=== PATIENT | male | born 1985 | race Caucasian/White ===

== ENCOUNTER → 2017-02-22 | Outpatient (CLI) | payer OTHER ==
[2017-02-22 08:02] LABS: ALT 49 U/L (21-72); AST 29 U/L (17-59); Alkaline Phosphatase 66 U/L (38-126); Anion Gap 8 mmol/L; Blood Urea Nitrogen 13 mg/dL (9-20); Calcium 9.2 mg/dL (8.4-10.2); Carbon Dioxide 29 mmol/L (22-30); Chloride 105 mmol/L (98-107); Cholesterol 183 mg/dL (<200); Glucose 103 mg/dL (74-99); HDL Cholesterol 39 mg/dL (40-60); Non-African American GFR(MDRD) >60 (>60 ml/min/1.73 sqM); Potassium 4.3 mmol/L (3.5-5.1); Sodium 142 mmol/L (137-145); Total Bilirubin 0.3 mg/dL (0.2-1.3); Total Protein 7.2 g/dL (6.3-8.2); Triglycerides 213 mg/dL (<150)
== END | disposition home or self-care (01) ==
LOC: LABWHC1 07:15
PROVIDERS: ATTEND Internal Medicine
DX: E78.4 Other hyperlipidemia (principal); E87.8 Other disorders of electrolyte and fluid balance, not elsewhere classified; R53.83 Other fatigue
CPT/HCPCS: 36415; 80053; 80061; 84443

== ENCOUNTER → 2018-08-25 | Outpatient (CLI) | payer BC ==
--- NOTE | 2018-08-25 07:39 | US ---
EXAMINATION TYPE: US abdomen limited DATE OF EXAM: 08/25/2018 COMPARISON: NONE CLINICAL HISTORY: R94.5 ABN.LFT. abnormal labs EXAM MEASUREMENTS: Liver Length: 14.7 cm Gallbladder Wall: 0.2 cm CHD: 0.3 cm Right Kidney: 10.0 x 4.8 x 4.8 cm Pancreas: Appears echogenic in appearance. Liver: slightly echogenic in appearance Gallbladder: wnl Evidence for sonographic White's sign: neg CBD: Obscured by overlying bowel gas CHD: wnl Right Kidney: wnl IMPRESSION: 1. Coarse echo appearance throughout the liver may reflect mild fatty infiltration versus diffuse hep atocellular disease. Correlate clinically.
== END | disposition home or self-care (01) ==
LOC: RADUSWWP 06:57
PROVIDERS: ATTEND Family Medicine
DX: R94.5 Abnormal results of liver function studies (principal)
CPT/HCPCS: 76705

== ENCOUNTER → 2020-02-28 | Outpatient (CLI) | payer BC ==
--- NOTE | 2020-02-29 07:19 | US ---
EXAMINATION TYPE: US scrotum with doppler. Grayscale and color Doppler Duplex imaging performed of t he scrotum. DATE OF EXAM: 02/28/2020 COMPARISON: NONE CLINICAL HISTORY: N43.0 SPERMATOCELE OF EPIDIDYMIS. Right testicular pain EXAM MEASUREMENTS: TESTICLES: Right Testicle: 4.6 x 2.1 x 3.0 cm Left Testicle: 4.2 x 2.2 x 2.9 cm EPIDIDYMIS HEAD: Right Epididymis: 0.8 x 1.1 x 0.9 cm Left Epididymis: 0.9 x 0.9 x 1.1 cm Doppler performed to assess for testicular vascularity; good bilateral color flow and waveforms are s een. There is no evidence of testicular torsion. Presence of hydroceles: left 2.9cm Presence of varicoceles: no 2.2 x 0.9 x 0.8cm cystic area medial to right testicle, possible hydrocele vs. other IMPRESSION: 1. There is a 2.2 cm fluid-filled possible cystic area adjacent to the right testicle may represent a small hydrocele. Correlate clinically. Additionally, there is a small left hydrocele.
== END | disposition home or self-care (01) ==
LOC: RADUSWWP 16:04
PROVIDERS: ATTEND Family Medicine
DX: N43.3 Hydrocele, unspecified (principal)
CPT/HCPCS: 76870; 93975